=== PATIENT | male | born 1995 | race African-American/Black ===

== ENCOUNTER 2018-02-10 14:59 | Emergency (ER) | payer OTHER, SELFPAY ==
[2018-02-10 15:04] VITALS: BP 105/87; PULSE 75; RESP 20; TEMP 36.4; O2SAT 100; BMI 26.6
--- NOTE | 2018-02-10 15:05 | ED_ITS ---
HPI - Syncope <TONJA John - Last Filed: 02/10/18 21:16> General Chief Complaint: Syncope Stated Complaint: SYNCOPAL EPISODE WHILE STANDING AT ATTENTION Time Seen by Provider: 02/10/18 15:04 Source: EMS Mode of arrival: EMS Limitations: no limitations History of Present Illness HPI narrative: Patient presents via EMS from [place]. He was standing at attention for about 2 min and had a syncopal episode. He stated he felt like he was going to vomit, have diarrhea, and then blacked out. Per report he hit his head and had about 30 sec loss of consciousness. He denies any chest pain, palpitations, neck pain, back pain current nausea or vomiting. He denies any medical history states he does not take any medications. Per EMS his blood sugar was 74. No numbness or tingling. States he feels perfectly fine at this point time. States he has not been drinking or eating as much as usual today Related Data Home Medications Medication Instructions Recorded Confirmed No Known Home Medications 02/10/18 02/10/18 Allergies Allergy/AdvReac Type Severity Reaction Status Date / Time No Known Drug Allergies Allergy Verified 02/10/18 15:19 Review of Systems <OLEGARIO John - Last Filed: 02/10/18 21:16> Review of Systems GENERAL: See HPI HEENT: Denies sinus pain, ear pain, sore throat, difficulty swallowing, dizziness. RESPIRATORY: Denies dyspnea, cough, wheezing, hemoptysis, sputum. CARDIOVASCULAR: See HPI GASTROINTESTINAL: See HPI : Denies dysuria, frequency, incontinence, hematuria, urinary retention. MUSCULOSKELETAL: denies weakness, joint pain, or bony pain SKIN: Denies rash, skin lesions, or other NEUROLOGIC: Denies weakness, headache, numbness, change in speech, confusion, seizures, incoordination. PSYCHIATRIC: No concerning psychosocial issues. 12 point review of systems is negative except for those stated above Exam <TONJA John - Last Filed: 02/10/18 21:16> Narrative Exam Narrative: GENERAL: This is a well-nourished, well-developed patient, in dressed on stretcher HEAD: Normocephalic. No temporal or scalp tenderness. Slight swelling noted above right eye. No pain to palpation of facial bones. Node palpable deformities. Face is stable to palpation. EYES: Pupils equal round and reactive. Extraocular motions intact. No scleral icterus. No injection or drainage. ENT: Nose without bleeding, purulent drainage or septal hematoma. Throat without erythema, tonsillar hypertrophy or exudate. Uvula midline. Airway patent. NECK: Trachea midline. No JVD or lymphadenopathy. Supple, nontender, no meningeal signs. No pain to palpation of C-spine. No pain on movement of neck full range of motion. C-spine cleared via nexus criteria CARDIOVASCULAR: Regular rate and rhythm without murmurs, gallops, or rubs. RESPIRATORY: Clear to auscultation. Breath sounds equal bilaterally. No wheezes , rales, or rhonchi. GASTROINTESTINAL: Abdomen soft, non-tender, nondistended. No hepato-splenomegaly , or palpable masses. No guarding. EXTREMITIES: No clubbing, cyanosis, or edema. No joint tenderness, effusion, or edema noted. BACK: Nontender without deformity or crepitance. No flank tenderness. No C- spine or spinal tenderness to palpation. NEURO: AOx3. Appropriate. SKIN: No rash or erythema. No ecchymosis to head or face. Initial Vital Signs Initial Vital Signs: Vital Signs Temperature 97.6 F 02/10/18 15:04 Pulse Rate 75 02/10/18 15:04 Respiratory Rate 20 02/10/18 15:04 Blood Pressure 105/87 H 02/10/18 15:04 Pulse Oximetry 100 02/10/18 15:04 <Jackie Fraser MD - Last Filed: 02/11/18 07:36> Initial Vital Signs Initial Vital Signs: Vital Signs Temperature 97.6 F 02/10/18 15:04 Pulse Rate 75 02/10/18 15:04 Respiratory Rate 20 02/10/18 15:04 Blood Pressure 105/87 H 02/10/18 15:04 Pulse Oximetry 100 02/10/18 15:04 Course <TONJA John - Last Filed: 02/10/18 21:16> Hospital Course: Patient evaluated at 13 15. EKG, lab work, CT ordered. Patient declines IV and IVF at this time. 13:40- CT is completed. Patient states he feels okay. Discussed waiting for results at this point time. Patient denies needs or concerns. 14:05- patient's lab work has come back within normal limits. CT scan negative for acute process. Creatinine noted to be 1.3 patient states he has not had a drink today. Encouraged fluids and patient given water. Patient has no questions or concerns. Has been steady on his feet for ambulation trial. Patient states he is ready to go nose called his ride. Orders Ordered: ED Orders 02/10/18 15:12 Complete Blood Count AUTO DIFF Stat Comprehensive Metabolic Panel Stat 02/10/18 15:21 CT head/brain wo con Stat Vital Signs - 8 hr 02/10/18 15:04 02/10/18 15:30 Temperature 97.6 F Pulse Rate 75 68 Respiratory Rate 20 14 Blood Pressure 105/87 H Blood Pressure [Left Arm] 110/70 Pulse Oximetry 100 100 <Jackie Fraser MD - Last Filed: 02/11/18 07:36> Orders Ordered: ED Orders 02/10/18 15:12 Complete Blood Count AUTO DIFF Stat Comprehensive Metabolic Panel Stat 02/10/18 15:21 CT head/brain wo con Stat Vital Signs - 8 hr 02/10/18 15:04 02/10/18 15:30 Temperature 97.6 F Pulse Rate 75 68 Respiratory Rate 20 14 Blood Pressure 105/87 H Blood Pressure [Left Arm] 110/70 Pulse Oximetry 100 100 MDM - Syncope <OLEGARIO John - Last Filed: 02/10/18 21:16> Differential Diagnosis Likely vasovagal syncope Lab Data Attestation: I reviewed the patient's lab results. Creatinine 1.3 noted. Patient states he has not had enough to drink today. Has been given p.o. fluids as he declined an IV. Result diagrams: 02/10/18 15:12 02/10/18 15:12 Lab Results 02/10/18 02/10/18 Range/Units 15:12 15:12 WBC 9.1 (4.5-11.0) X10^3/uL RBC 5.89 (4.5-5.9) X10^6/uL Hgb 15.3 (13.5-17.5) g/dL Hct 43.7 (41-53) % MCV 74.2 L (80-100) fL MCH 26.0 (26-34) PG MCHC 35.0 (30-36) % RDW 14.7 (11.6-14.8) % Plt Count 223 (150-400) X10^3/uL Neut % (Auto) 80.1 H (50-75) % Lymph % (Auto) 15.5 L (25-40) % [place] % (Auto) 3.9 (3-14) % Eos % (Auto) 0.1 L (2-4) % Baso % (Auto) 0.4 (0-2) % Neut # (Auto) 7300 H (0015-8418) /uL Sodium 142 (137-145) mmol/L Potassium 4.3 (3.4-5.1) mmol/L Chloride 102.0 (98-107) mmol/L Carbon Dioxide 30.0 (22-32) mmol/L BUN 13.0 (9-20) mg/dL Creatinine 1.30 H (0.66-1.25) mg/dL Estimated GFR > 60.0 (>60) mL/min BUN/Creatinine Ratio 10.0 (6-22) Glucose 96 (70-100) mg/dL Calcium 9.4 (8.4-10.2) mg/dL Total Bilirubin 1.0 (0.2-1.3) mg/dL AST 17 (17-59) IU/L ALT 25 (21-72) IU/L Alkaline Phosphatase 63 (38-126) U/L Total Protein 7.6 (6.3-8.2) g/dL Albumin 4.4 (3.5-5.0) g/dL Globulin 3.2 (1.7-4.1) g/dL Albumin/Globulin Ratio 1.4 (1.0-2.8) Imaging Data CT scan - head: Radiologist's impression: [address] [address] [address] Scan Report Signed Patient: CHASITY NIETO II MR#: [id number] : 1995 Acct:[id number] Age/Sex: 22 / M Date of Service: 02/10/18 Loc: ED Accession Number: [id number] Procedure: CT head/brain wo con Ordering Provider: Celeste Martinez [facility] PROCEDURE: CT HEAD/BRAIN WO CON INDICATIONS: hit head, loc TECHNIQUE: Noncontrast 4.5 mm thick angled axial sections acquired from the foramen magnum to the vertex, with coronal and sagittal reformats. For radiation dose reduction, the following was used: automated exposure control, adjustment of mA and/or kV according to patient size. COMPARISON: None. FINDINGS: Image quality: Excellent. CSF spaces: Basal cisterns are patent. No extra-axial fluid collections. Ventricles are normal in size and shape. Brain: No midline shift. No intracranial masses or hemorrhage. Ramirez-white matter interface is normal. Skull and face: Calvarium and visualized facial bones are intact, without suspicious lesions. Sinuses: Visualized sinuses and mastoids are clear. IMPRESSION: No acute intracranial disease process. Dictated by: Hali Araiza MD, PhD on 02/10/2018 at 14:40 Approved by: Hali Araiza MD, PhD on 02/10/2018 at 14:42 ECG Data Attestation: I personally reviewed and interpreted this ECG as follows: Interpretation: Patient is sinus rhythm heart rate 76. QRS [address] changes at this time. EKG has been viewed by Dr. Fraser. MDM Narrative Medical decision making narrative: Patient presents after syncope while standing information with . He had his knees locked for several minutes. Exam and history is consistent with vasovagal syncope. Slightly elevated creatinine noted of 1.3. Patient encouraged to have fluids as he declined an IV at this time. Neck was cleared via nexus criteria. Head CT came back within normal limits with no acute process. Patient discharged has no questions or concerns. <Jackie Fraser MD - Last Filed: 02/11/18 07:36> Lab Data Lab Results 02/10/18 02/10/18 Range/Units 15:12 15:12 WBC 9.1 (4.5-11.0) X10^3/uL RBC 5.89 (4.5-5.9) X10^6/uL Hgb 15.3 (13.5-17.5) g/dL Hct 43.7 (41-53) % MCV 74.2 L (80-100) fL MCH 26.0 (26-34) PG MCHC 35.0 (30-36) % RDW 14.7 (11.6-14.8) % Plt Count 223 (150-400) X10^3/uL Neut % (Auto) 80.1 H (50-75) % Lymph % (Auto) 15.5 L (25-40) % [place] % (Auto) 3.9 (3-14) % Eos % (Auto) 0.1 L (2-4) % Baso % (Auto) 0.4 (0-2) % Neut # (Auto) 7300 H (2142-8528) /uL Sodium 142 (137-145) mmol/L Potassium 4.3 (3.4-5.1) mmol/L Chloride 102.0 (98-107) mmol/L Carbon Dioxide 30.0 (22-32) mmol/L BUN 13.0 (9-20) mg/dL Creatinine 1.30 H (0.66-1.25) mg/dL Estimated GFR > 60.0 (>60) mL/min BUN/Creatinine Ratio 10.0 (6-22) Glucose 96 (70-100) mg/dL Calcium 9.4 (8.4-10.2) mg/dL Total Bilirubin 1.0 (0.2-1.3) mg/dL AST 17 (17-59) IU/L ALT 25 (21-72) IU/L Alkaline Phosphatase 63 (38-126) U/L Total Protein 7.6 (6.3-8.2) g/dL Albumin 4.4 (3.5-5.0) g/dL Globulin 3.2 (1.7-4.1) g/dL Albumin/Globulin Ratio 1.4 (1.0-2.8) Discharge Plan Departure Patient Disposition: Home, Self-Care Clinical Impression: Vasovagal syncope, Dehydration Discharge Date/Time: 02/10/18 16:08 Interventions: ED Discharge Assessment Last Done: 02/10/18 16:17 Instructions: DI for Syncope in Adults (Fainting), DI for Dehydration -- Adult Activity Restrictions/Additional Instructions: I think you had something called vasovagal syncope. This happens when your heart beats too slowly or your blood vessels expand and can happen from stress, standing for too long, or from no clear cause. Your lab work indicates that you might be dehydrated, so that might be the cause here. Rest, drink water. Come back to the emergency department if you need to or if you have any numbness , tingling, another episode of passing out. Prescriptions: No Action No Known Home Medications RF: 0 <Jackie Fraser MD - Last Filed: 02/11/18 07:36> Sign Out Provider Sign Out Attestation: I was the attending of record and available in the ED. I attest to the documentation recorded and agree with assessment and plan.
--- NOTE | 2018-02-10 15:21 | DI.CT.S_ITS ---
PROCEDURE: CT HEAD/BRAIN WO CON INDICATIONS: hit head, loc TECHNIQUE: Noncontrast 4.5 mm thick angled axial sections acquired from the foramen magnum to the vertex, with coronal and sagittal reformats. For radiation dose reduction, the following was used: automated exposure control, adjustment of mA and/or kV according to patient size. COMPARISON: None. FINDINGS: Image quality: Excellent. CSF spaces: Basal cisterns are patent. No extra-axial fluid collections. Ventricles are normal in size and shape. Brain: No midline shift. No intracranial masses or hemorrhage. Ramirez-white matter interface is normal. Skull and face: Calvarium and visualized facial bones are intact, without suspicious lesions. Sinuses: Visualized sinuses and mastoids are clear. IMPRESSION: No acute intracranial disease process. Dictated by: Hali Araiza MD, PhD on 02/10/2018 at 14:40 Approved by: Hali Araiza MD, PhD on 02/10/2018 at 14:42
[2018-02-10 15:30] VITALS: BP 110/70; PULSE 68; RESP 14; O2SAT 100
[2018-02-10 15:33] LABS: Alanine Aminotransferase 25 IU/L (21-72); Albumin 4.4 g/dL (3.5-5.0); Albumin Globulin Ratio 1.4 (1.0-2.8); Alkaline Phosphatase 63 U/L (38-126); Aspartate Aminotransferase 17 IU/L (17-59); Calcium 9.4 mg/dL (8.4-10.2); Estimated Glomerular Filt Rate > 60.0 mL/min (>60); Globulin 3.2 g/dL (1.7-4.1); Glucose 96 mg/dL (70-100); HEMOLYSIS < 15 (0-50); Potassium 4.3 mmol/L (3.4-5.1); Sodium 142 mmol/L (137-145); Total Protein 7.6 g/dL (6.3-8.2)
[2018-02-10 15:39] LABS: Add Manual Diff / Slide Review NO; Basophils Percent Auto 0.4 % (0-2); Eosinophils Percent Auto 0.1 % (2-4); Hematocrit 43.7 % (41-53); Hemoglobin 15.3 g/dL (13.5-17.5); Lymphocytes Percent Auto 15.5 % (25-40); Mean Corpuscular Volume 74.2 fL (80-100); Monocytes Percent Auto 3.9 % (3-14); Neutrophils Absolute Auto 7300 /uL (3000-5900); Neutrophils Percent Auto 80.1 % (50-75); Platelet Count 223 X10^3/uL (150-400); Red Blood Cell Count 5.89 X10^6/uL (4.5-5.9); Red Cell Distribution Width 14.7 % (11.6-14.8); White Blood Cell Count 9.1 X10^3/uL (4.5-11.0)
== END 2018-02-10 16:08 | disposition home or self-care (01) ==
PROVIDERS: Emergency Provider Nurse Practitioner Family
DX: R55 Syncope and collapse (principal); E86.0 Dehydration
CPT/HCPCS: 36415; 70450; 80053; 85025; 93005; 99282; 99285